=== PATIENT | female | born 1995 | race Caucasian/White ===

== ENCOUNTER 2020-01-01 06:29 | Inpatient (IN) | payer MEDICARE, MEDICAID ==
[~2020-01-01] VITALS: Ht 149.9 cm; Wt 62.8 kg
[~2020-01-01 06:29] MED LIST: CARB200T; CLON0.5T PO; ESCI10TA61; LACO50TA2; NITR-87
[2020-01-01] MEDS ORDERED: ONDANSETRON HCL 4MG/2ML INJ IV STA (07:06)
[2020-01-01] MEDS ORDERED: SODIUM CHLORIDE 0.9% 1,000 ML IV ONE (07:06)
[2020-01-01] MEDS ORDERED: MORPHINE SULFATE 4 MG/ML CPJ (NOT FOR IM USE) IV STA ×2 (07:06→10:28)
[2020-01-01 07:56] LABS: BASOPHILS % 0.4 % (0.0-2.0); HEMATOCRIT. 38.8 % (36.0-48.0); HEMOGLOBIN. 13.4 g/dL (12.0-16.0); LYMPHOCYTES % 17.3 % (20.0-50.0); MEAN CORPUSCULAR HEMOGLOBIN 31.4 pg (28.0-32.0); MEAN CORPUSCULAR VOLUME 90.9 fL (81.0-99.0); MEAN PLATELET VOLUME 9.1 fl (7.4-10.4); MONOCYTES % 5.4 % (2.0-8.0); NEUTROPHILS % 76.9 % (40.0-76.0); PLATELET 166 x1000/uL (130-400); RED BLOOD CELL COUNT 4.27 mill/uL (4.2-5.4); RED CELL DISTRIBUTION WIDTH 13.4 % (11.6-14.6)
[2020-01-01 08:12] LABS: INR 1.2; PROTHROMBIN TIME 12.1 sec (9.6-11.0)
[2020-01-01 08:15] LABS: CHLORIDE 105 mEq/L (98-107)
[2020-01-01 08:36] LABS: HCG SCREEN NEGATIVE
[2020-01-01] MEDS ORDERED: IOHEXOL-300 100 ML BOTTLE ONE (09:15)
[2020-01-01 09:45] LABS: CLARITY URINE CLEAR (CLEAR); COLOR URINE YELLOW (YELLOW); KETONES URINE NEGATIVE (NEGATIVE); LEUKOCYTE ESTERASE URINE 2+ (NEGATIVE); NITRITE URINE NEGATIVE (NEGATIVE); OCCULT BLOOD URINE NEGATIVE (NEGATIVE); PH URINE 7.5 (4.5-8.0); PROTEIN URINE NEGATIVE (NEGATIVE); SPECIFIC GRAVITY URINE 1.019 (1.005-1.030); UROBILINOGEN URINE 0.2 E.U./dL (0.2-1.0)
[2020-01-01 10:00] LABS: *AMPHETAMINES SCREEN URINE NEGATIVE (NEGATIVE); *BARBITURATES SCREEN URINE NEGATIVE (NEGATIVE); *BENZODIAZEPINES SCREEN URINE NEGATIVE (NEGATIVE); *COCAINE SCREEN URINE NEGATIVE (NEGATIVE); METHADONE URINE SCREEN NEGATIVE (NEGATIVE)
[2020-01-01 10:01] LABS: CANNABINOID URINE SCREEN NEGATIVE (NEGATIVE); PHENCYCLIDINE URINE SCREEN NEGATIVE (NEGATIVE)
[2020-01-01 10:07] LABS: OPIATES URINE SCREEN PRESUMTIVE POSITIVE (NEGATIVE)
[2020-01-01] MEDS ORDERED: LORAZEPAM 2MG/ML CPJ IV ONE ×2 (10:30→16:30)
[2020-01-01] MEDS ORDERED: MAGNESIUM/ALUMINUM HYDROXIDE/SIMETHICONE 30ML UDC PO STA (12:00)
[2020-01-01] MEDS ORDERED: DICYCLOMINE 10 MG/5 ML ORAL SYR PO STA (12:00)
[2020-01-01] MEDS ORDERED: VISCOUS LIDOCAINE 2% 15 ML UDC PO STA (12:00)
[2020-01-01] MEDS ORDERED: ACETAMINOPHEN 325MG TABLET PO PRN ×2 (13:15)
[2020-01-01] MEDS ORDERED: CEFTRIAXONE 1 G PREMIX 50 ML IV SCH (14:00)
[2020-01-01] MEDS: ONDANSETRON HCL 4MG/2ML INJ IV PRN ×2 (14:44→23:11)
[2020-01-01] MEDS ORDERED: FOLIC ACID 1 MG, THIAMINE HCL 100 MG, MVI, ADULT NO.1 10 ML in DEXTROSE 5% WATER 1,000 ML IV SCH ×4 (15:00)
[2020-01-01] MEDS ORDERED: LEVETIRACETAM 500MG PREMIX 100 ML IV ONE ×2 (16:30)
[2020-01-01] MEDS ORDERED: LORAZEPAM 2MG/ML CPJ ONE (16:30)
[2020-01-01] MEDS: MORPHINE SULFATE 2 MG/ML CPJ (NOT FOR IM USE) IV PRN ×2 (18:02→23:12)
[2020-01-01] MEDS: CARBAMAZEPINE 200MG TABLET PO SCH (21:16)
[2020-01-01] MEDS: CLONAZEPAM 0.5MG TABLET PO SCH (21:16)
[2020-01-01 22:47] VITALS: BP 106/60
[2020-01-01] MEDS ORDERED: LEVETIRACETAM 750 MG in SODIUM CHLORIDE 0.9% 100 ML IV SCH (23:00)
[2020-01-02] VITALS (10 sets, daily range): BP systolic 92–144; BP diastolic 39–63
[2020-01-02] MEDS ORDERED: OMEPRAZOLE 20MG CAPSULE EXTENDED RELEASE PO SCH (06:50)
[2020-01-02 06:56] LABS: BASOPHILS % 0.2 % (0.0-2.0); EOSINOPHILS % 0.3 % (0.0-5.0); HEMOGLOBIN. 12.5 g/dL (12.0-16.0); LYMPHOCYTES % 32.7 % (20.0-50.0); MEAN CORPUSCULAR HEMOGLOBIN 31.5 pg (28.0-32.0); MEAN CORPUSCULAR VOLUME 90.9 fL (81.0-99.0); MEAN PLATELET VOLUME 9.2 fl (7.4-10.4); MONOCYTES % 7.9 % (2.0-8.0); NEUTROPHILS % 58.9 % (40.0-76.0); PLATELET 152 x1000/uL (130-400); RED BLOOD CELL COUNT 3.96 mill/uL (4.2-5.4); RED CELL DISTRIBUTION WIDTH 13.3 % (11.6-14.6)
[2020-01-02 07:29] LABS: CHLORIDE 108 mEq/L (98-107)
[2020-01-02] MEDS ORDERED: LEVETIRACETAM 750 MG in SODIUM CHLORIDE 0.9% 100 ML IV SCH (09:00)
[2020-01-02] MEDS: CLONAZEPAM 0.5MG TABLET PO SCH (09:36)
[2020-01-02] MEDS: CARBAMAZEPINE 200MG TABLET PO SCH (09:36)
[2020-01-02] MEDS ORDERED: FLUOXETINE HCL 20MG CAPSULE PO SCH (11:00)
[2020-01-02] MEDS ORDERED: CEFTRIAXONE 1 G PREMIX 50 ML IV SCH (13:00)
[2020-01-02] MEDS: ONDANSETRON HCL 4MG/2ML INJ IV PRN (13:08)
[2020-01-02] MEDS ORDERED: FOLIC ACID 1 MG, THIAMINE HCL 100 MG, MVI, ADULT NO.1 10 ML in DEXTROSE 5% WATER 1,000 ML IV SCH ×4 (14:00)
== END 2020-01-02 17:00 | disposition home or self-care (01) | DRG 872 ==
LOC: ER 06:29 → 3WST 12:11 → EDBEDREQSVC 16:29 → EDBEDREQ 16:29 → ENRESERV 21:20
PROVIDERS: ADMIT Internal Medicine; ATTEND Internal Medicine
DX: A41.9 Sepsis, unspecified organism (principal); N39.0 Urinary tract infection, site not specified; E87.2 Acidosis; K21.9 Gastro-esophageal reflux disease without esophagitis; G40.409 Other generalized epilepsy and epileptic syndromes, not intractable, without status epilepticus; K29.70 Gastritis, unspecified, without bleeding; K52.9 Noninfective gastroenteritis and colitis, unspecified; Z88.2 Allergy status to sulfonamides
CPT/HCPCS: 36415; 71045; 74177; 80048; 80053; 80305; 81003; 82962; 83605; 84703; 85025; 96365; 99285; J0696; J1953; J2060; J2270; J2405; J3411; J3490; J7030; J7050; J7070; Q9967

== ENCOUNTER 2020-04-08 14:32 | Emergency (ER) | payer MEDICARE, MEDICAID ==
[~2020-04-08] VITALS: Ht 149.9 cm; Wt 65.0 kg
[~2020-04-08 14:32] MED LIST changes: -NITR-87
[2020-04-08 14:34] VITALS: BP 119/67
== END 2020-04-08 17:00 | disposition left against medical advice (07) ==
LOC: ER 14:32
DX: F41.9 Anxiety disorder, unspecified (principal); Z53.21 Procedure and treatment not carried out due to patient leaving prior to being seen by health care provider

== ENCOUNTER 2022-02-26 10:00 | Emergency (ER) | payer MEDICARE, MEDICAID ==
[~2022-02-26] VITALS: Ht 149.9 cm; Wt 63.0 kg
[~2022-02-26 10:00] MED LIST changes: +ESCI-7; -ESCI10TA61
[2022-02-26] MEDS ORDERED: LEVETIRACETAM 1000MG PREMIX 100 ML IV ONE (10:45)
[2022-02-26 11:22] LABS: BASOPHILS % 0.2 % (0.0-2.0); EOSINOPHILS % 0.1 % (0.0-5.0); HEMATOCRIT. 39.6 % (36.0-48.0); HEMOGLOBIN. 13.2 g/dL (12.0-16.0); LYMPHOCYTES % 11.9 % (20.0-50.0); MEAN CORPUSCULAR HEMOGLOBIN 29.8 pg (28.0-32.0); MEAN CORPUSCULAR VOLUME 89.3 fL (81.0-99.0); MEAN PLATELET VOLUME 9.6 fl (7.4-10.4); MONOCYTES % 6.6 % (2.0-8.0); NEUTROPHILS % 81.2 % (40.0-76.0); PLATELET 223 x1000/uL (130-400); RED BLOOD CELL COUNT 4.43 mill/uL (4.2-5.4); RED CELL DISTRIBUTION WIDTH 13.3 % (11.6-14.6)
[2022-02-26 11:31] LABS: CHLORIDE 108 mEq/L (98-107)
[2022-02-26 11:56] LABS: HCG SCREEN NEGATIVE
[2022-02-26 12:30] VITALS: BP 106/67
[2022-02-26] MEDS ORDERED: LEVE750T4 MT (12:59)
== END 2022-02-26 14:00 | disposition home or self-care (01) ==
LOC: ER 10:14
DX: G40.909 Epilepsy, unspecified, not intractable, without status epilepticus (principal); F41.9 Anxiety disorder, unspecified; F31.9 Bipolar disorder, unspecified; Z88.2 Allergy status to sulfonamides
CPT/HCPCS: 36415; 80053; 84703; 85025; 96365; 99284; J1953

== ENCOUNTER 2022-05-29 15:34 | Emergency (ER) | payer MEDICARE, MEDICAID ==
[~2022-05-29] VITALS: Ht 165.1 cm; Wt 81.0 kg
[~2022-05-29 15:34] MED LIST changes: +LEVE750T4 MT
[2022-05-29 15:54] VITALS: BP 124/76
== END 2022-05-29 21:50 | disposition left against medical advice (07) ==
LOC: ER 15:34
DX: Z53.21 Procedure and treatment not carried out due to patient leaving prior to being seen by health care provider (principal)

== ENCOUNTER 2022-10-31 13:10 | Emergency (ER) | payer MEDICARE, MEDICAID ==
[~2022-10-31] VITALS: Ht 149.9 cm; Wt 68.0 kg
[2022-10-31 13:16] VITALS: BP 120/42
[2022-10-31] MEDS ORDERED: NITROGLYCERIN 0.4MG TABLET SL SL PRN (13:30)
[2022-10-31] MEDS ORDERED: ASPIRIN 81MG TABLET PO ONE (13:30)
[2022-10-31 14:03] LABS: BASOPHILS % 0.5 % (0.0-2.0); EOSINOPHILS % 0.5 % (0.0-5.0); HEMOGLOBIN. 13.9 g/dL (12.0-16.0); MEAN CORPUSCULAR HEMOGLOBIN 29.8 pg (28.0-32.0); MEAN CORPUSCULAR VOLUME 88.2 fL (81.0-99.0); MEAN PLATELET VOLUME 9.6 fl (7.4-10.4); MONOCYTES % 8.7 % (2.0-8.0); NEUTROPHILS % 72.3 % (40.0-76.0); PLATELET 181 x1000/uL (130-400); RED BLOOD CELL COUNT 4.65 mill/uL (4.2-5.4); RED CELL DISTRIBUTION WIDTH 12.8 % (11.6-14.6)
[2022-10-31 14:16] LABS: CHLORIDE 106 mEq/L (98-107)
[2022-10-31 14:19] LABS: HCG SCREEN NEGATIVE
[2022-10-31] MEDS ORDERED: IBUP-2028 MT (15:43)
== END 2022-10-31 15:59 | disposition home or self-care (01) ==
LOC: ER 13:10
DX: R07.89 Other chest pain (principal); Z88.2 Allergy status to sulfonamides; Z86.59 Personal history of other mental and behavioral disorders
CPT/HCPCS: 36415; 71045; 80053; 83880; 84484; 84703; 85025; 93005; 99285